=== PATIENT | male | born 1970 | race Caucasian/White ===

== ENCOUNTER 2018-02-02 17:16 | Emergency (ER) | payer BC ==
[2018-02-02] MEDS: HYDROCODONE/APAP (10/325) TAB PO (19:27)
== END 2018-02-02 20:43 | disposition home or self-care (01) ==
LOC: FTE 17:16
DX: M25.462 Effusion, left knee (principal); S80.02XA Contusion of left knee, initial encounter; X58.XXXA Exposure to other specified factors, initial encounter; Y92.9 Unspecified place or not applicable
CPT/HCPCS: 29505; 73562; 99283-25

== ENCOUNTER 2018-04-02 17:20 | Emergency (ER) | payer BC | END 2018-04-02 19:05 | disposition home or self-care (01) | LOC: FTE 17:20 | DX: S42.402A Unspecified fracture of lower end of left humerus, initial encounter for closed fracture (principal); V89.2XXA Person injured in unspecified motor-vehicle accident, traffic, initial encounter; Z87.891 Personal history of nicotine dependence | CPT/HCPCS: 73080; 73080-LT; 73610; 99284-25 ==